=== PATIENT | female | born 1960 | race Caucasian/White ===

== ENCOUNTER → 2018-03-06 | Outpatient (CLI) | payer OTHER ==
--- NOTE | 2018-03-06 16:03 | MR ---
EXAMINATION TYPE: MR lumbar spine wo con DATE OF EXAM: 03/06/2018 2:54 PM COMPARISON: NONE HISTORY: Low Back Pain Multiplanar, MultiSpin echo imaging of the lumbar spine was performed. L1-L2: Normal disc appearance without desiccation. No herniation, protrusion or disc bulging. No ca nal stenosis is present. Foramina are patent bilaterally. L2-L3: Mild disc desiccation. Circumferential disc bulge greatest posteriorly with mild effacement ve ntral thecal sac. No evidence for central stenosis or disc herniation. Visualized neural foramina dem onstrate mild left-sided foraminal encroachment. L3-L4: Mild disc desiccation. Circumferential disc bulge greatest posteriorly with mild effacement ve ntral thecal sac. No evidence for central stenosis or disc herniation. Visualized neural foramina are patent bilaterally. L4-L5: Moderate disc desiccation. Circumferential disc bulge greatest posteriorly. Mild subligamentou s herniation difficult to exclude paracentrally and to the left. Mild bilateral lateral recess stenos is. Moderate bilateral foraminal encroachment. Facet joint arthropathy. L5-S1: Normal disc appearance without desiccation. No herniation, protrusion or disc bulging. No ca nal stenosis is present. Foramina are patent bilaterally. Lumbar segments are intact. No paraspinal masses are identified. Conus medullaris has a normal appe arance. IMPRESSION: 1. Generative disc disease and disc bulging as discussed above.
== END | disposition home or self-care (01) ==
LOC: RADMRIMAIN 13:59
PROVIDERS: ATTEND Physician Assistant
DX: M51.16 Intervertebral disc disorders with radiculopathy, lumbar region (principal)
CPT/HCPCS: 72148

== ENCOUNTER → 2021-06-10 | Outpatient (CLI) | payer MEDICARE, OTHER ==
--- NOTE | 2021-06-10 15:26 | PE ---
EXAMINATION TYPE: PET CT fusion skull to thigh DATE OF EXAM: 06/10/2021 COMPARISON: Most recent chest x-ray October 14, 2020 HISTORY: Solitary small pulmonary nodule, abnormal CT TECHNIQUE: Following the intravenous administration of 8.42 mCi of F-18 FDG, whole body images are p erformed from the skull base to the midthigh. Images are reviewed on the computer in the coronal, ax ial, and sagittal planes. Reconstructed rotating images are created on independent workstation and r eviewed on the computer. A localization and attenuation correction CT is performed in conjunction w ith the PET scan. Blood glucose level equals 79. SCAN: Initial Scan FINDINGS: SKULL BASE AND NECK: No suspicious abnormal hypermetabolic uptake. CHEST, MEDIASTINUM, AND HILAR REGION: Moderate underlying emphysematous change greatest in the upper lungs. Mild biapical pleural/parenchymal scarring. Slightly more focal scarring anteriorly left upper lung axial image 77. Focal scarring or atelectasis anteriorly left mid lung axial image 109. Calcifi ed nodules or granulomas left lung base axial image 131. No suspicious abnormal hypermetabolic uptake . ABDOMEN AND PELVIS: Normal excretion. No adrenal masses. No abnormal hypermetabolic uptake. OSSEOUS STRUCTURES: No abnormal hypermetabolic uptake. OTHER CT: Coronary artery calcification is present which is noted marker for underlying coronary caio ry disease. Patient has little intra-abdominal fat. There is at least moderate diffuse colonic fecal prominence o r stasis. Correlate for constipation. No suspicious small bowel dilatation. IMPRESSION: No suspicious hypermetabolic uptake to suggest malignancy.
== END | disposition home or self-care (01) ==
LOC: RADPETMAIN 12:10
PROVIDERS: ATTEND Nurse Practitioner Family
DX: R91.1 Solitary pulmonary nodule (principal)
CPT/HCPCS: 78815; A9552

== ENCOUNTER → 2023-12-13 | Outpatient (CLI) | payer MEDICARE, OTHER ==
--- NOTE | 2023-12-15 13:19 | PE ---
EXAMINATION TYPE: PET CT fusion skull to thigh DATE OF EXAM: 12/13/2023 CLINICAL INDICATION:Female, 63 years old with history of R93.[address]; TECHNIQUE: Following the intravenous administration of 10.45 mCi of F-18 FDG, whole body images are performed from the skull base to the midthigh. Images are reviewed on the computer in the coronal, axial, and sagittal planes. Reconstructed rotating images are created on independent workstation and reviewed on the computer. A non-contrast CT is performed in conjunction with the PET scan. Glucose level 89 mg/dL CT DLP: 150 mGycm, Automated exposure control for dose reduction was used. COMPARISON: CT None, PET/CT 06/10/2021, FINDINGS: Mediastinal SUV mean is 1.9. Hepatic parenchyma SUV mean is 2.1. SKULL BASE AND NECK: No suspicious radiotracer activity. CHEST, MEDIASTINUM, AND HILAR REGION: Scattered metabolically active pulmonary nodules in the left upper lobe measuring 9 mm Max SUV 3.3. left lower lobe lateral is a calcified nodule Max SUV 1.2. Left upper lobe posteriorly measuring 6 mm Max SUV 1.3. Right upper lobe measuring 6 mm Max SUV 2.6 laterally and right upper lobe more medial measuring 4 mm Max SUV 2.0. ABDOMEN AND PELVIS: No suspicious radiotracer activity. MUSCULOSKELETAL STRUCTURES: No suspicious radiotracer activity. Degeneration uptake within the spine including a facet joint on the left at L5-S1 max SUV 4.2 disc space at L4-L5 max SUV 4.8 cervical spi ne at C3-C4 facet joints max SUV 3.8. OTHER CT: Calcifications of the coronary arteries, aortic valve leaflets, the carotid bifurcations. IMPRESSION: 1. Scattered FDG avid pulmonary nodules suspicious for multifocal primary versus metastatic disease. Consider short-term follow-up given their size with CT in 3 months. FDG avid nodules are new from . 2. Scattered degeneration uptake in the spine.
== END | disposition home or self-care (01) ==
LOC: RADPETMAIN 14:44
PROVIDERS: ATTEND Internal Medicine
DX: R91.8 Other nonspecific abnormal finding of lung field (principal); R93.89 Abnormal findings on diagnostic imaging of other specified body structures
CPT/HCPCS: 78815; A9552

== ENCOUNTER → 2024-09-25 | Outpatient (CLI) | payer MEDICARE, OTHER ==
--- NOTE | 2024-09-26 22:17 | PE ---
EXAMINATION TYPE: PET CT fusion skull to thigh DATE OF EXAM: 09/25/2024 CLINICAL INDICATION:Female, 63 years old with history of R91.8 LUNG MASS; TECHNIQUE: Following the intravenous administration of 10.5 mCi of F-18 FDG, whole body images are performed from the skull base to the midthigh. Images are reviewed on the computer in the coronal, a xial, and sagittal planes. Reconstructed rotating images are created on independent workstation and reviewed on the computer. A non-contrast CT is performed in conjunction with the PET scan. Glucose level 97 mg/dL CT DLP: 160.07 mGycm, Automated exposure control for dose reduction was used. COMPARISON: CT 08/20/2024, PET/CT 12/13/2023, 06/10/2021, MRI: None FINDINGS: Mediastinal SUV mean is 1.3. Hepatic parenchyma SUV mean is 1.7. SKULL BASE AND NECK: No suspicious radiotracer activity. CHEST, MEDIASTINUM, AND HILAR REGION: Posterior left upper lobe masslike consolidation measuring grossly up to 5.1 cm. There is some internal medicine doctor al cavitation is redemonstrated. This is similar to most recent CT chest 08/20/2024 but new from prior PET/CT 12/13/2023. This demonstrates FDG activity along its more medial aspect with a maximum SUV of 1 0.2. Additional stable anterior left upper lobe 1.1 cm pulmonary nodule. Demonstrates mild FDG activity wi th a maximum SUV of 2.9, previously 3.3. Development of several nodular opacities within the right lower lobe measuring up to [address] from [address] nt CT chest 08/20/2024. These demonstrate FDG activity with a maximum SUV of 8.1. Calcified granuloma within the anterior left lower lobe. ABDOMEN AND PELVIS: No suspicious radiotracer activity. MUSCULOSKELETAL STRUCTURES: No suspicious radiotracer activity. OTHER CT: Bilateral carotid bulb calcifications. Mild atherosclerotic calcification of the aorta and its branches. Mild cortical calcifications. Aortic valvular calcifications. Couple punctate nonobstru ctive bilateral renal calculi. Degenerative changes of the lower lumbar spine. Moderate to advanced c entrilobular emphysematous changes. IMPRESSION: 1. Left upper lobe masslike consolidation with FDG activity concerning for malignancy versus other e tiologies such as pneumonia or atypical fungal/mycobacterial infection. Consider pulmonary medicine e valuation of possible endobronchial assessment. 2. Left upper lobe and new right lower lobe pulmonary nodules with mild FDG activity concerning for possible metastasis versus other etiologies such as infectious/inflammatory nodules. [facility], , 09/26/2024 10:15 PM
== END | disposition home or self-care (01) ==
LOC: RADPETMAIN 12:57
PROVIDERS: ATTEND Internal Medicine
DX: R91.8 Other nonspecific abnormal finding of lung field (principal); N20.0 Calculus of kidney
CPT/HCPCS: 78815; A9552

== ENCOUNTER 2024-10-16 11:16 | Day surgery (SDC) | payer MEDICARE, OTHER ==
[~2024-10-16 11:16] MED LIST: HYDROmorphone 0.5 MG/0.5 ML SYRINGE IVP PRN; LACTATED RINGERS 1,000 ML IV SCH; LIDOCAINE 1% (10MG/ML) FOR IV START INTRADERMA PRN
--- NOTE | 2024-10-16 11:41 | CT ---
EXAMINATION TYPE: CT Chest wo ION protocol DATE OF EXAM: 10/16/2024 COMPARISON: Prior PET/CT September 25, 2024 CLINICAL INDICATION: Female, 63 years old with history of bronch w/ ion robot, PRE BRONCHIAL NAVIGATI ON FOR MASS TECHNIQUE: CT scan of the thorax is performed without IV contrast. CT DLP: 238 mGycm. Automated Exposure Control for Dose Reduction was Utilized. FINDINGS: Current exam is for bronchoscopy planning and not for diagnostic purposes. Moderate to severe underlying emphysematous change is redemonstrated. There is persistent peripheral masslike consolidation in the posterior lateral aspect of the left upper lobe. There is moderate to s evere three-vessel coronary artery calcification again seen. There is calcification at the level of t he mitral and aortic valve redemonstrated. Subcentimeter nodules in the posterior right lower lobe ar e redemonstrated. IMPRESSION: As above. [facility], , 10/16/2024 11:39 AM
[2024-10-16 11:58] VITALS: RESP 16
[2024-10-16] MEDS: IV FLUID CONTINUATION 1,000 ML IV ONE (11:58)
[2024-10-16] MEDS: LACTATED RINGERS 1,000 ML IV SCH (11:58)
[2024-10-16] MEDS: ONDANSETRON 4 MG/2 ML VIAL IVP PRN (12:07)
[2024-10-16] MEDS: DEXAMETHASONE SOD PHOSPHATE 4 MG/ML 1 ML VIAL IV ONE (12:07)
[2024-10-16] MEDS ORDERED: ONDANSETRON 4 MG/2 ML VIAL ONE (12:44)
[2024-10-16] MEDS ORDERED: GLYCOPYRROLATE 0.2 MG/ML 2 ML VIAL ONE (12:44)
[2024-10-16] MEDS ORDERED: fentaNYL (PF) 50 MCG/ML 2 ML AMP ONE (12:44)
[2024-10-16] MEDS ORDERED: ROCURONIUM 10 MG/ML (5 ML VIAL) IV ONE (12:44)
[2024-10-16] MEDS ORDERED: SUCCINYLCHOLINE CHLORIDE 200 MG/10 ML VIAL IV ONE (12:44)
[2024-10-16] MEDS ORDERED: ePHEDrine 50 MG/ML 1 ML VIAL ONE (12:44)
[2024-10-16] MEDS ORDERED: NEOSTIGMINE 1 MG/ML 10 ML VIAL ONE (12:44)
[2024-10-16] MEDS ORDERED: PHENYLEPHRINE-0.9% NACL SYG 1,000 MCG/10 ML SYRINGE ONE (12:44)
[2024-10-16] MEDS ORDERED: PROPOFOL 10 MG/ML 20 ML VIAL IV ONE (12:44)
[2024-10-16] MEDS ORDERED: LIDOCAINE 1% INJ 10MG/ML (20 ML MDV) ONE (12:44)
--- NOTE | 2024-10-16 13:46 | FL ---
EXAMINATION TYPE: FL bronchoscopy DATE OF EXAM: 10/16/2024 CLINICAL INDICATION: Female, 63 years old with history of BRONCHOSCOPY WITH ION ROBOT, TECHNIQUE: Fluoroscopy. COMPARISON: None. FINDINGS: Fluoroscopic guidance was provided during noncontrast CT procedure performed by Dr. Humera brito. A total of 62.1 seconds of fluoroscopic time was utilized during the procedure and 4 spot images was acquired. TOTAL DAP = 2.0383 Gycm2. IMPRESSION: As Above. [facility], , 10/16/2024 1:44 PM
--- NOTE | 2024-10-16 13:48 | P.PCN ---
Date of Procedure: 10/16/24 Operative Findings: Preoperative Diagnosis: Left upper lobe pulmonary consolidating mass Postoperative Diagnosis: Left upper lobe pulmonary consolidating mass Procedure(s) Performed: Flexible bronchoscopy Robotic-assisted bronchoscopy and addition to radial ultrasound evaluation of the pulmonary left upper lobe consolidating mass Robotic-assisted transbronchial biopsies, transbronchial needle aspirate, transbronchial brushing of left upper lobe pulmonary consolidating mass Anesthesia: GETA Surgeon: Raymond Kate Estimated Blood Loss (ml): 0 Pathology: other Condition: stable Disposition: same day Operative Findings: A physical exam was performed. Informed consent was obtained from the patient after explaining all the risks (pneumothorax, life threatening bleeding, infection and adverse effects due to medications), benefits and alternatives to the procedure which the patient appeared to understand and so stated. The patient was connected to the monitoring devices. General anesthesia was induced and the patient was intubated by anesthesia. A final timeout was performed and the procedure confirmed by the attending staff bronchoscopist. The bronchoscope was inserted and the airway examined. The trachea was within normal limits. Valerie was sharp. Examination of the right setting of the right upper lobe bronchus, bronchus intermedius, right middle lobe and right lower lobe bronchus and the various 10 segments on the right and one of the obstruction within normal limits. Examination of the left side showed a normal proximal left mainstem bronchus. The distal left mainstem bronchus Bronchus and left lower lo be bronchus radius 8 segments on the left were essentially within normal limits. There was copious amount of secretions scattered throughout the airways and no secretions were thick, creamy white, purulence. There was no evidence of any endobronchial tumors. No significant mucosal abnormalities. The flexible bronchoscope was removed and the robotic bronchoscope was inserted. Registration was completed. I next guided the robotic bronchoscope using the navigation system into the left upper lobe apical segment. Once in proper position, the bronchoscope was frozen. The radial EBUS probe was placed through the bronchoscope and confirmed abnormal u/s images vs normal lung. Bone removed U/S evaluation was then used to reconfirm location. Transbronchial needle aspirate of the left upper lobe pulmonary was done, a total of 3 passes and the adequacy of the samples were confirmed by pathology at the bedside. The aspirate was nonbloody and some greenish to yellowish material was aspirated with a 21- gauge needle. Forceps were next introduced through working channel and extended the appropriate distance and 3 transbronchial biopsies were performed using fluoroscopic guidance. The u/s probe was then reinserted to confirm location. When confirmed this process was repeated for a total of 6 transbronchial biopsies. Following that, transbronchial brushing of the left upper lobe c onsolidation/mass was done with fluoroscopic guidance. A BAL of the left upper lobe was also done. A total of 80 cc of fluid was infused and 20 cc was aspirated and the aspirate was nonbloody. Fluoroscopic check for pneumothorax was negative upon completion of the procedure. There was 0 ml blood loss with the procedure. The robotic catheter was removed. The flexible bronchoscope was inserted. Therapeutic airway suctioning was done. There was no evidence of an endobronchial bleed. The flexible bronchoscope was removed. The patient was extubated and the patient was transferred to recovery in stable condition. FINDINGS: 1.The airways appeared normal, moderate respiratory secretions 2 Successful navigation, ultrasonographic identification, and biopsies of left upper lobe mass/consolidation 3.The the radial ultrasound view was concentric RECOMMENDATIONS: Await pathology and cytology results The referring physician will be alerted to the results when available. The patient was advised to follow up with the referring physician with the biopsy results
[2024-10-16 13:56] VITALS: TEMP 97
--- NOTE | 2024-10-16 14:17 | XR ---
EXAMINATION TYPE: XR chest 1V DATE OF EXAM: 10/16/2024 CLINICAL INDICATION: Female, 63 years old with history of post bx, TECHNIQUE: Single frontal view of the chest is obtained. COMPARISON: Chest CT earlier today. FINDINGS: There is background chronic emphysematous change with lateral left upper lung parenchymal scar like opacity redemonstrated. There is adjacent pleural thickening. No pneumothorax is seen. The cardiac silhouette size is within normal limits. The osseous structures are demineralized. IMPRESSION: No pneumothorax after bronchoscopy and left-sided biopsy. [facility], , 10/16/2024 2:14 PM
[2024-10-16 14:46] VITALS: PULSE 81
[2024-10-16 15:09] VITALS: BP 113/69
[2024-10-17 14:33] LABS: Appearance,BF Blood Tinged (Clear); RBC, Body Fluid 9350 /UL (0-2000)
[2024-10-20 10:02] LABS: Nucleated Cells, Body Fluid 128 /UL
== END 2024-10-16 15:28 | disposition home or self-care (01) ==
LOC: ORWHC2ENDO 11:16
PROVIDERS: ATTEND Internal Medicine Critical Care Medicine
DX: R91.8 Other nonspecific abnormal finding of lung field (principal); J44.9 Chronic obstructive pulmonary disease, unspecified; E78.00 Pure hypercholesterolemia, unspecified; M19.90 Unspecified osteoarthritis, unspecified site; G89.29 Other chronic pain; F41.8 Other specified anxiety disorders; J30.2 Other seasonal allergic rhinitis; Z79.82 Long term (current) use of aspirin; Z79.83 Long term (current) use of bisphosphonates; Z79.1 Long term (current) use of non-steroidal anti-inflammatories (NSAID); Z79.51 Long term (current) use of inhaled steroids; Z79.899 Other long term (current) drug therapy; F17.210 Nicotine dependence, cigarettes, uncomplicated
CPT/HCPCS: 87798 ×3; 87496; 87498; 87529; 88108; 88305; 89050; 88312; 87502; 87634; 87070; 87205; 87116; 87102; 87206; 87635; 71045; 71250; 31628; 31629; 31623; 31624; 31627; 31654; J0330; J1100; J2710; J2405; J2003; J3010; J2704; J2371; J1596; S2900